=== PATIENT | male | born 2000 | race Two or more races ===

== ENCOUNTER 2024-09-21 11:00 | Emergency (ER) | payer MEDICAID, SELFPAY ==
[2024-09-21 11:09] VITALS: BP 147/86; PULSE 71; RESP 16; TEMP 36.9; O2SAT 98; BMI 26.9
--- NOTE | 2024-09-21 11:58 | EDNOTE_ITS ---
ED Skin Abcess FB-RME/HPI General Chief complaint: Dental/Oral/Throat Stated complaint: Shrimp skin stuck in his throat Time Seen by Provider: 09/21/24 11:02 Source: patient Arrival date/time: 09/21/24 11:00 23-year-old male with no known medical history presents to the emergency room with a chief complaint of strain stuck in his throat x 4 days Mode of arrival: ambulatory Limitations: no limitations Related Data Previous Rx's ?Medication ?Instructions ?Recorded omeprazole 40 mg capsule,delayed 40 mg PO QDAY #30 cap s 09/21/24 release Allergies Allergy/AdvReac Type Severity Reaction Status Date / Time No Known Drug Allergies Allergy Verified 09/21/24 11:05 Review of Systems Review of Systems Systems Reviewed: All systems reviewed, normal except as documented Constitutional Constitutional: Reports system reviewed and no additional complaints, except as documented, Denies fatigue, Denies fever(s), Denies headache(s) and Denies weakness Eyes Eyes: Reports system reviewed and no additional complaints, except as documented, Denies blurry vision and Denies change in vision ENT Ears, Nose, Mouth, and Throat: Reports system reviewed and no additional complaints, except as documented, Denies otalgia, Denies headache(s), Denies nasal congestion, Denies throat swelling and Denies vertigo Cardiovascular Cardiovascular: Reports system reviewed and no additional complaints, except as documented, Reports chest pain, Reports chest pain at rest, Reports chest pain with activity, Denies dyspnea and Denies dyspnea on exertion Respiratory Respiratory: Reports system reviewed and no additional complaints, except as documented, Denies chest congestion, Denies cough, Denies dyspnea, Denies dyspnea on exertion and Denies wheezing Gastrointestinal Gastrointestinal: Reports system reviewed and no additional complaints, except as documented, Denies abdominal pain, Denies cramping, Denies nausea and Denies vomiting Genitourinary Genitourinary: Reports system reviewed and no additional complaints, except as documented, Denies dysuria and Denies hematuria Musculoskeletal Musculoskeletal: Reports system reviewed and no additional complaints, except as documented and Denies back pain Integumentary/Breasts Skin/Breast: Reports system reviewed and no additional complaints, except as documented and Denies wounds Neurologic Neurologic: Reports system reviewed and no additional complaints, except as documented, Denies confusion, Denies headache(s), Denies lack of coordination, Denies vertigo and Denies weakness Psychiatric Psychiatric: Reports system reviewed and no additional complaints, except as documented, Denies anxiety, Denies confusion, Denies depression, Denies paranoia, Denies suicidal ideation and Denies tactile hallucinations Endocrine Endocrine: Reports system reviewed and no additional complaints, except as documented and Denies fatigue Hematologic/Lymphatic Hematologic/Lymphatic: Reports system reviewed and no additional complaints, except as documented and Denies lymphadenopathy Allergic/Immunologic Allergic/Immunologic: Reports system reviewed and no additional complaints, except as documented, Denies throat swelling, Denies urticaria and Denies wheezing Past Medical History Past Medical History CARDIAC: Negative Congestive Heart Failure RESPIRATORY: Negative Chronic Obstructive Pulmonary Disease (COPD) GENITOURINARY: Negative Renal Disease ENDOCRINE: Negative Diabetes Mellitus Type 1 or Diabetes Mellitus Type 2 Social History SMOKING STATUS: Never smoker ED Exam General Limitations: Present no limitations General appearance: Present alert and in no apparent distress Head Head exam: Present atraumatic Eye Eye exam: Present normal appearance, PERRL and EOMI ENT ENT exam: Present normal exam, normal oropharynx and mucous membranes moist Expanded ENT Exam Mouth exam: Absent drooling, trismus, lip swelling or tongue normal Neck Neck exam: Present normal inspection, full ROM and trachea midline Chest Chest inspection: Present normal inspection and symmetric chest wall rise Respiratory Respiratory exam: Present normal lung sounds bilaterally; Absent respiratory distress, wheezes, stridor, accessory muscle use or prolonged expiratory phase Cardiovascular Cardiovascular exam: Present regular rate, normal rhythm, tachycardia and normal heart sounds Abdominal Exam Abdominal exam: Present soft and normal bowel sounds Extremities Exam Extremities exam: Present normal inspection and full ROM Back Exam Back exam: Present normal inspection and full ROM Neurological Exam Neurological exam: Present alert, oriented X3 and CN II-XII intact Psychiatric Psychiatric exam: Present normal affect and normal mood Skin Skin exam: Present warm, dry, intact and normal color Course Quality Measures none Vital Signs Vital signs: Vital Signs Temperature 98.5 F 09/21/24 11:09 Pulse Rate 71 09/21/24 11:09 Respiratory Rate 16 09/21/24 11:09 Blood Pressure 147/86 H 09/21/24 11:09 Pulse Oximetry (%) 98 09/21/24 11:09 Oxygen Delivery Method Room Air 09/21/24 11:09 Skin / Abscess / Foreign Body MDM Narrative MDM Narrative:: 23-year-old male with no known medical history presents to the emergency room with a chief complaint of strain stuck in his throat x 4 days Patient is hemodynamically stable and in no apparent distress Physical examination shows no foreign body in the posterior pharynx. The patient also has no gag reflex. Due to the no gag reflex I was able to get the glide a scope and check for any foreign bodies. No foreign bodies were found. The patient states that he has been feeling like something is stuck in his throat for the last 4 days. There is no drooling there is no respiratory distress. I was able to get a cup of water and the patient swallowed it with no complications. Patient states he has also been eating with no complications. I spoke to my attending physician Dr. Johnson who came and evaluated the patient and states that the patient is good to be discharged but I can call Dr. Plascencia or sheet metal welder for further instructions. I called Dr. Plascencia the gastroenter ologist who stated that the patient is able to be discharged if he is able to swallow any. Dr. Plascencia told me to start him on omeprazole for couple of weeks. Patient was discharged and educated to follow-up with primary care provider in the next 24 to 48 hours and return to the emergency room for any evidence of worsening signs or symptoms Patient data External records reviewed:: [facility] previous records Clinical information provided by:: patient Social determinants that could affect healthcare access:: none Patient has the following chronic illnesses:: No chronic illness How is presenting disease/condition affected by chronic disease/condition?: no chronic disease Evaluation data The following diagnostics were reviewed and interpreted by me:: lab results Lab and/or radiology exams considered but not ordered:: Labs and radiology exams considered and ordered Interpretation Summary: N/A Medications / Prescriptions Medications or Prescriptions considered but not ordered:: Medication given Medication administrations:: Medication not given Consultations Consultation(s) initiated? (list below): Yes Consultation #1 (Physician, Specialty, Details): Dr. Plascencia, sheet metal welder Time: 11:00 Diagnosis Skin/Abscess Differential Diagnosis: other (Foreign body) Most likely diagnosis given after review of the tests above:: Foreign body in throat Admission Indicated Admission indicated?: not indicated Admission Request Was there a request for admission?: No Disposition Plan Disposition Plan: Discharge Discharge Attestation Discharge Attestation: The patient and all family members were given an opportunity to ask questions and understood the discharge instructions. Discharge instructions specifically effects, indications for sooner follow up or return to the emergency department, and the expected course of current diagnosis. Patient condition: Stable Discharge Plan Plan Patient Disposition: HOME (Self Care) Discharge Disposition comment: Stable Prescriptions/Referrals Prescriptions/Med Rec: New omeprazole 40 mg capsule,delayed release(DR/EC) 40 mg PO QDAY Qty: 30 0RF Problem List Clinical Impression: Foreign body Patient/Caregiver Discharge Instructions Additional Instructions: Please follow-up with your primary care provider in the next 24 to 48 hours If your sinus symptoms continue referral to a sheet metal welder for an endoscopy may be indicated For any evidence of worsening signs or symptoms return to the emergency room immediately Print Language: Japanese Stand Alone Forms: Renetta Award Info., Patient Portal Info Letter PA/PROGRAM SCHEDULE CLERK Supervising Physician PA/PROGRAM SCHEDULE CLERK Supervising Physician: Dr. Tejeda
== END 2024-09-21 12:08 | disposition home or self-care (01) ==
LOC: SERX 12:20
PROVIDERS: Emergency Provider Nurse Practitioner Family
DX: R09.A2 Foreign body sensation, throat (principal)
CPT/HCPCS: 99282